=== PATIENT | male | born 1975 | race Caucasian/White ===

== ENCOUNTER 2018-11-20 11:24 | Outpatient (CLI) | payer OTHER ==
[2018-11-20 13:46] LABS: Hemoglobin 16.4 g/dL (14.0-18.0); Mean Corpuscular HGB CONC 32.7 g/dL (32.0-36.0); Mean Corpuscular Hemoglobin 30.7 pg (27.0-31.0); Mean Corpuscular Volume 93.9 fL (78.0-98.0); Mean Platelet Volume 6.4 fL (7.4-10.4); Platelet Count 344 thou/uL (130-400); RBC Distribution Width 11.4 % (11.5-14.5); Red Blood Cell (RBC) Count 5.34 mill/uL (4.70-6.10); White Blood Cell (WBC) Count 10.2 thou/uL (4.8-10.8)
[2018-11-20 13:51] LABS: PTT 30.9 SEC (22.9-36.1); Prothrombin Time 12.9 SEC (12.0-14.7)
[2018-11-20 13:52] LABS: Bilirubin Negative (Negative); Blood, Urine Negative (Negative); Clarity CLEAR (Clear); Glucose, Urine (Dipstick) Negative (Negative); Leukocyte Negative (Negative); Nitrite Negative (Negative); Protein, Urine (Dipstick) Negative (Neg-Trace); Urobilinogen 0.2 mg/dL (0.2-1.0)
[2018-11-20 13:54] LABS: Bacteria/HPF None Seen HPF (None Seen); Hyaline Casts/LPF 0-3 HYALINE CAST LPF (0-3 Hyaline); RBC/HPF 0-3 HPF (0-3); Squamous Epithelial None Seen HPF (0-3); WBC/HPF None Seen HPF (0-3)
[2018-11-20 13:55] LABS: Hemoglobin A1c 5.3 % (4.0-6.0)
[2018-11-20 14:17] LABS: Anion Gap 14 mmol/L (10-20); BUN (Urea Nitrogen) 12 mg/dL (8.9-20.6); Calc. Creatinine Clearance 0 mL/min (70-130); Carbon Dioxide 25 mmol/L (22-29); Chloride 104 mmol/L (98-107); Estimated GFR-MDRD Greater than 90; Glucose 85 mg/dL (70-105); Potassium 4.5 mmol/L (3.5-5.1); Sodium 138 mmol/L (136-145)
== END 2018-11-20 11:25 | disposition home or self-care (01) ==
LOC: LABBT 11:24
PROVIDERS: ATTEND Urology
DX: Z01.812 Encounter for preprocedural laboratory examination (principal); N48.1 Balanitis
CPT/HCPCS: 80048; 81001; 83036; 85027; 85610; 85730; 87086; 93005; 93010

== ENCOUNTER 2018-11-26 06:36 | Day surgery (SDC) | payer OTHER ==
[2018-11-20 12:12] VITALS: BMI 38.0
[2018-11-26] MEDS ORDERED: Bacitracin Zinc Ointment 30 gm TUBE ONE (08:22)
[2018-11-26] MEDS ORDERED: Bupivacaine 0.25% HCL 30 ML VIAL ONE (08:22)
[2018-11-26] MEDS ORDERED: Famotidine/PF 20 mg/2ml Vial ONE (08:41)
[2018-11-26] MEDS ORDERED: Fentanyl 100 MCG/2 ML VIAL ONE (08:41)
--- NOTE | 2018-11-26 10:42 | OP ---
DATE OF PROCEDURE: 11/26/2018 PREOPERATIVE DIAGNOSES: 1. A 43-year-old morbidly obese male with history of balanoposthitis, pain with intercourse. 2. History of impotence. POSTOPERATIVE DIAGNOSES: 1. A 43-year-old morbidly obese male with history of balanoposthitis, pain with intercourse. 2. History of impotence. PROCEDURE PERFORMED: Circumcision. ANESTHESIA: LMA. COMPLICATIONS: None apparent. SPECIMEN: Foreskin. INDICATIONS FOR PROCEDURE AND HISTORY: Mr. Quick is a 43-year-old male with history of obesity, presents for evaluation of balanitis. He states that he has difficulty retracting his foreskin with discomfort. It is impeding his sexual activity. There is irritation of his foreskin. He also relates history of impotence, at times difficulty sustaining his erection. I did check a hemoglobin A1c, negative for occult diabetes and presents today for circumcision. Risks and complications of the procedure were reviewed with him in detail including, but not limited to, bleeding, pain, infection, injury to adjacent organs, penile curvature, meatal stenosis. Wound complications reviewed. Questions encouraged and answered and desired to proceed. Possible recurrent chronic discomfort reviewed. DESCRIPTION OF PROCEDURE: After an informed consent was signed, the patient was taken to the operating room, placed in a supine position with the genital area prepped and draped in the usual surgical sterile fashion. There was a frenular adhesion with irritative changes. Upon retraction of the foreskin, there may be a subtle changes consistent with prior circumcision; however, this is somewhat vague. There is a ring of foreskin just distal to the coronal sulcus that has chronic irritative changes. Due to his body habitus, I did not remove excessive foreskin. We removed the minimal foreskin that would remove the irritative changes just proximal to the coronal sulcus. With the frenular adhesion reduced, the ring of foreskin was divided after it was incised with 15 blade. Good hemostasis was obtained with intermittent cautery. The foreskin was then reapproximated using 2-0 chromic in an interrupted fashion. Pressure dressing was applied and he tolerated the procedure well. He was discharged with Keflex 500 mg 1 p.o. b.i.d. for 3 days, Colace p.r.n., and [place] 5/325 for 30 p.r.n. He will follow up with me this Monday for a wound check. Job ID: [id number] [id number]
[2018-11-26] MEDS ORDERED: Ketorolac Tromethamine 30 MG/ML VIAL ONE (15:10)
[2018-11-26] MEDS ORDERED: Lidocaine 1% PF 5 ML VIAL ONE (15:10)
[2018-11-26] MEDS ORDERED: Dexamethasone 20 MG/5 ML VIAL ONE (15:10)
[2018-11-26] MEDS ORDERED: Metoclopramide HCl 10 MG/2 ML VIAL ONE (15:10)
[2018-11-26] MEDS ORDERED: PROPOFOL 200 MG/20 ML VIAL ONE (15:10)
[2018-11-26] MEDS ORDERED: Ondansetron PF 4 MG/2 ML Vial ONE (15:10)
== END 2018-11-26 12:30 | disposition home or self-care (01) ==
LOC: SDC 06:36
PROVIDERS: ATTEND Urology
PROC: 0VTTXZZ Resection of Prepuce, External Approach (ICD-10-PCS; principal; 2018-11-26)
DX: N47.6 Balanoposthitis (principal); E66.01 Morbid (severe) obesity due to excess calories; Z68.38 Body mass index [BMI] 38.0-38.9, adult; E78.00 Pure hypercholesterolemia, unspecified; M19.90 Unspecified osteoarthritis, unspecified site; Z87.891 Personal history of nicotine dependence; Z91.040 Latex allergy status; Z79.899 Other long term (current) drug therapy
CPT/HCPCS: 88304; J0131; J1100; J1885; J2001; J2405; J2704; J2765; J3010; S0020; S0028

== ENCOUNTER 2018-12-06 18:30 | Emergency (ER) | payer OTHER ==
[2018-12-06 19:38] LABS: Bilirubin Negative (Negative); Blood, Urine Negative (Negative); Clarity CLEAR (Clear); Glucose, Urine (Dipstick) Negative (Negative); Leukocyte Negative (Negative); Nitrite Negative (Negative); Protein, Urine (Dipstick) Negative (Neg-Trace); Specific Gravity, Urine 1.028 (1.002-1.036); pH, Urine 5.5 (5.0-9.0)
== END 2018-12-06 20:24 | disposition home or self-care (01) ==
LOC: ERS 18:30
DX: Z48.816 Encounter for surgical aftercare following surgery on the genitourinary system (principal); Z79.899 Other long term (current) drug therapy; E78.5 Hyperlipidemia, unspecified
CPT/HCPCS: 81003; 99283

== ENCOUNTER 2019-05-28 11:07 | Outpatient (CLI) | payer OTHER ==
--- NOTE | 2019-05-28 13:15 | RAD ---
PA AND LATERAL VIEWS CHEST: HISTORY: Wheezing. FINDINGS: The cardiomediastinum is normal. The lungs are expanded and clear. The bony thorax is normal. IMPRESSION: Normal exam. POS: [facility]
== END 2019-05-28 11:08 | disposition home or self-care (01) ==
LOC: RAD-FRANK 11:07
PROVIDERS: ATTEND Nurse Practitioner Family
DX: F17.200 Nicotine dependence, unspecified, uncomplicated (principal); R06.2 Wheezing
CPT/HCPCS: 71046

== ENCOUNTER 2020-09-14 09:16 | Outpatient (CLI) | payer OTHER ==
--- NOTE | 2020-09-14 09:50 | RAD ---
2 view chest: [09/14/2020] Comparison:05/28/2019 HISTORY: Abnormal EKG FINDINGS: Heart and mediastinal contours are grossly unremarkable. No pneumothorax or pleural fluid. No focal consolidation or alveolar edema. IMPRESSION: No acute findings.
== END 2020-09-14 09:17 | disposition home or self-care (01) ==
LOC: RAD-FRANK 09:16
PROVIDERS: ATTEND Nurse Practitioner Family
DX: R79.89 Other specified abnormal findings of blood chemistry (principal)
CPT/HCPCS: 71046